=== PATIENT | female | born 1995 | race Caucasian/White ===

== ENCOUNTER 2017-02-15 12:07 | Emergency (ER) | payer SELFPAY ==
[~2017-02-15] VITALS: Ht 160 cm; Wt 77.1 kg
--- NOTE | 2017-02-15 12:30 | ED Fall/Injury ---
General Chief Complaint: Chest Wall/Rib Pain Stated Complaint: FALL/RIGHT RIB PAIN Nursing Triage Note: PT CO OF R RIB PAIN, STATES FELL LAST WEEK ON R SIDE AND CO OF R RIB PAIN SINCE WEDNESDAY Source: patient, RN notes reviewed Exam Limitations: no limitations History of Present Illness Time seen by provider: 12:30 Occurred: last week Allergies and Home Medications Allergies Coded Allergies: No Known Drug Allergies (Unverified , 02/15/17) Home Medications No Active Prescriptions or Reported Meds Past Aqlaqla-Cggldz-Afcpyb Hx Patient Social History Alcohol Use: Denies Use Recreational Drug Use: Yes (HX) Smoking Status: Current Someday Smoker Type Used: Cigarettes Recent Foreign Travel: No Contact w/Someone Who Travel: No Recent Infectious Disease Expo: No Recent Hopitalizations: No Reproductive System : No Physical Exam Vital Signs Vital Sign - Last 12Hours 02/15/17 12:24 Temp 97.2 Pulse 94 Resp 18 B/P (MAP) 92/69 Pulse Ox 97 Capillary Refill : Less Than 3 Seconds Progress/Results/Core Measures Results/Orders Lab Results Laboratory Tests Test 02/15/17 12:33 Range/Units Urine Color YELLOW Urine Clarity CLEAR Urine pH 6 5-9 Urine Specific [place] 1.015 L 1.016-1.022 Urine Protein 1+ H NEGATIVE Urine Glucose (UA) NEGATIVE NEGATIVE Urine Ketones NEGATIVE NEGATIVE Urine Nitrite POSITIVE H NEGATIVE Urine Bilirubin NEGATIVE NEGATIVE Urine Urobilinogen NORMAL NORMAL MG/DL Urine Leukocyte Esterase 3+ H NEGATIVE Urine RBC (Auto) 4+ H NEGATIVE Urine RBC 0-2 /HPF Urine WBC 25-50 H /HPF Urine Squamous Epithelial Cells >50 H /HPF Urine Crystals NONE /LPF Urine Bacteria LARGE H /HPF Urine Casts NONE /LPF Urine Mucus NEGATIVE /LPF Urine Culture Indicated YES My Orders Orders - ALICIA WALKER DO Ribs/Unilateral With Chest (02/15/17 12:32) Ua Culture If Indicated (02/15/17 12:32) Urine Culture (02/15/17 12:33) Vital Signs/I&O Vital Sign - Last 12Hours 02/15/17 12:24 Temp 97.2 Pulse 94 Resp 18 B/P (MAP) 92/69 Pulse Ox 97 Blood Pressure Mean: 77 Departure Impression Impression: Primary Impression: Contusion of rib on right side Additional Impression: UTI (urinary tract infection) Disposition: 01 HOME, SELF-CARE Condition: Stable Departure-Patient Inst. Decision time for Depature: 13:47 Referrals: ISHAAN KERR MD Patient Instructions: Bruised Rib (DC), Urinary Tract Infection, Adult (DC) Scripts Cefdinir (Cefdinir) 300 Mg Capsule 300 MG PO BID for UTI, #20 CAP 0 Refills Prov: ALICIA WALKER DO 02/15/17 Naproxen Sodium (Anaprox Ds) 550 Mg Tablet 550 MG PO Q12H Y for PAIN, #20 TAB 0 Refills Prov: ALICIA WALKER DO 02/15/17 ALICIA WALKER DO February 15, 2017 12:30
[2017-02-15 12:41] LABS: BILIRUBIN,URINE NEGATIVE (NEGATIVE); KETONES,URINE NEGATIVE (NEGATIVE); LEUKOCYTE ESTERASE ,URINE 3+ (NEGATIVE); NITRITE,URINE POSITIVE (NEGATIVE); PH,URINE 6 (5-9); PROTEIN,URINE 1+ (NEGATIVE); UROBILINOGEN,URINE NORMAL (NORMAL)
[2017-02-15 13:12] LABS: SQUAMOUS EPITHELIAL CELL,UR >50 /HPF; WBC,URINE 25-50 /HPF
--- NOTE | 2017-02-15 13:25 | Diagnostic Imaging Report ---
INDICATION: Right-sided chest wall pain after fall. COMPARISON: None available. TECHNIQUE: PA chest with three views of the right ribs. FINDINGS: No pneumothorax or pleural effusion. No evidence of pulmonic laceration. Normal cardiomediastinal silhouette. There is no acute or healing rib fracture on the right side. IMPRESSION: 1. No pneumothorax. 2. No acute or healing rib fracture on the right. Dictated by: Dictated on workstation # [id number]
[2017-02-15] MEDS ORDERED: CEFD300C3 PO (13:50)
[2017-02-15] MEDS ORDERED: NAPR550T PO (13:50)
[2017-02-15 17:17] VITALS: BP 109/78
== END 2017-02-15 13:57 | disposition home or self-care (01) ==
LOC: ER 12:12
DX: S20.211A Contusion of right front wall of thorax, initial encounter (principal); N39.0 Urinary tract infection, site not specified; F17.210 Nicotine dependence, cigarettes, uncomplicated; W19.XXXA Unspecified fall, initial encounter; Y99.8 Other external cause status
CPT/HCPCS: 71101; 81000; 84703; 87077; 87088; 87186; 99283

== ENCOUNTER 2019-09-07 12:39 | Emergency (ER) | payer SELFPAY ==
[~2019-09-07] VITALS: Ht 160 cm; Wt 83.4 kg
[~2019-09-07 12:39] MED LIST: CEFD300C3 PO; NAPR-1070 PO
[2019-09-07] MEDS ORDERED: LIDOCAINE/EPI 2% 1:100,00 (XYLOCAINE) 20 ML VIAL ONE (12:58)
[2019-09-07] MEDS ORDERED: AUGMENTIN 875 MG TAB (AMOXICILLIN/CLAVULANATE) PO SCH (13:00)
[2019-09-07] MEDS ORDERED: IBUPROFEN 800 MG (MOTRIN) TAB PO ONE (13:00)
[2019-09-07] MEDS ORDERED: ACETAMINOPHEN 325 MG TABLET PO ONE (13:00)
--- NOTE | 2019-09-07 13:05 | ED EENT ---
History of Present Illness General Chief Complaint: Dental Problems/Pain Stated Complaint: FACIAL SWELLING History of Present Illness Date Seen by Provider: Sep 07, 2019 Time Seen by Provider: 12:40 Initial Comments The patient is a 24-year-old female who is otherwise healthy. She presents with concern for acute onset of mild left-sided facial swelling in association with a necrotic left maxillary premolar. Tooth is not hurting right now but there is swelling to the face superior to it. No associated fevers, nausea or vomiting, trismus, trouble with secretions, pain or swelling to the floor of the mouth or elevation of the tongue, change in voice, trouble swallowing, shortness of breath. Symptoms had onset over the last 1 day. Patient took a dose of clindamycin this morning prior to arrival. Allergies and Home Medications Allergies Coded Allergies: No Known Drug Allergies (Unverified , 02/15/17) Home Medications Amoxicillin/Potassium Clav 1 Each Tablet, 1 TAB PO BID Prescribed by: NINA HUITRON on 09/07/19 1309 Cefdinir 300 Mg Capsule, 300 MG PO BID Prescribed by: ALICIA WALKER on 02/15/17 1350 Ibuprofen 800 Mg Tablet, 800 MG PO Q8H PRN for PAIN Prescribed by: NINA HUITRON on 09/07/19 1309 Naproxen Sodium 550 Mg Tablet, 550 MG PO Q12H PRN for PAIN Prescribed by: ALICIA WALKER on 02/15/17 1350 Tramadol HCl 50 Mg Tablet, 50 MG PO Q6H Prescribed by: NINA HUITRON on 09/07/19 1309 Patient Home Medication List Home Medication List Reviewed: Yes Review of Systems Review of Systems Constitutional: see HPI All Other Systems Reviewed Negative Unless Noted: Yes (Negative excepted noted.) Past Roidyto-Xjoptr-Vszfcc Hx Past Med/Social Hx: Reviewed Nursing Past Med/Soc Hx Patient Social History Type Used: Cigarettes Recent Foreign Travel: No Recent Hopitalizations: No Family Medical History Reviewed Nursing Family Hx Physical Exam Height, Weight, BMI Height: 5'3.00" Weight: 170lbs. oz. 77.973209gz; BMI Method:Stated General Appearance: no apparent distress This is a 24-year-old female appearing nontoxic and in no acute distress. Head is normocephalic and atraumatic. Neck is supple and nontender. Oropharynx is moist. There is mild tenderness and fluctuance at the gingival margin in association with a left maxillary premolar tooth which appears necrotic. There is overlying mild left maxillary facial swelling. No trismus. No other acute intraoral abnormalities and in particular no posterior oropharyngeal erythema, tonsillar exudates or swelling or uvular deviation. Patient is tolerating secretions very well and speaks in a normal tone of voice. Lungs clear to auscultation in all stations. There is a normal S1 and S2 without rubs or gallops and capillary refill is appropriate, less than 2 seconds globally. Abdomen is soft, nontender and nondistended. Skin is warm and dry without cyanosis, clubbing or edema. Psychiatrically, the patient demonstrates radha ropriate mood and affect and is alert. Procedures/Interventions I&D : Site: Left maxilla Blade Size: 12 Progress Fluctuant area to gingiva overlying necrotic left maxillary premolar numbed with lidocaine, then a 0.5cm incision made. Small amount of purulent material expressed, along with minimal blood. Patient tolerated the procedure well. Progress/Results/Core Measures Results/Orders My Orders Orders - NINA HUITRON MD Ibuprofen Tablet (Motrin Tablet) (09/07/19 13:00) Acetaminophen Tablet/Caplet (Tylenol T (09/07/19 13:00) Amoxicillin/Clavulanate Tablet (Augmenti (09/07/19 13:00) Lidocaine/Epi 1% 1:100,000 (Xylocaine /E (09/07/19 13:00) Lidocaine/Epi 2% 1:100,000 (Xylocaine/Ep (09/07/19 12:58) Medications Given in ED Current Medications Medications Dose Ordered Sig/Arlen Route Start Time Stop Time Status Last Admin Dose Admin Acetaminophen 975 mg ONCE ONCE PO 09/07/19 13:00 09/07/19 13:01 DC 09/07/19 13:20 975 MG Ibuprofen 800 mg ONCE ONCE PO 09/07/19 13:00 09/07/19 13:01 DC 09/07/19 13:20 800 MG Progress Progress Note : Time: 13:05 Progress Note 24-year-old female who presents with mild periapical/dental abscess involving the buccal membrane above a necrotic left maxillary premolar. Plan will be for antibiotics, pain medications and I&D procedure followed by discharge on Augmentin and with medication for discomfort and to follow up very closely in the next 1-2 days with a dentist. Patient understands and agrees with this plan of care. Update 1340: I&D procedure completed as above and the patient tolerated the procedure very well. We'll discharge with antibiotic and medications for discomfort as noted. The patient is to follow up very closely with her dentist immediately after the weekend and understands that if symptoms worsen or if other new symptoms of concern develop that she needs to return immediately to the emergency department for reevaluation. All questions are answered. We'll proceed with discharge home at this time. Departure Impression Primary Impression: Periapical abscess Disposition: HOME, SELF-CARE Condition: Improved Departure-Patient Inst. Patient Instructions: Tooth Abscess (DC) Add. Discharge Instructions: You were seen for a dental abscess which has been treated with an incision and drainage procedure. It is very important that you follow up very closely in the next 1-2 days with a dentist. Take the antibiotics until the prescription is gone. Use the pain medication as needed for discomfort. Return right away for worsening symptoms or other new concerns. Scripts Tramadol HCl (Tramadol HCl) 50 Mg Tablet 50 MG PO Q6H for Breakthrough Pain, #12 TAB Prov: NINA HUITRON MD 09/07/19 Ibuprofen (Ibuprofen) 800 Mg Tablet 800 MG PO Q8H PRN for PAIN, #30 TAB 0 Refills Prov: NINA HUITRON MD 09/07/19 Amoxicillin/Potassium Clav (Augmentin 875-125 Tablet) 1 Each Tablet 1 TAB PO BID for 10 Days, #20 TAB 0 Refills Prov: NINA HUITRON MD 09/07/19 NINA HUITRON MD Sep 07, 2019 13:04 POS
[2019-09-07] MEDS ORDERED: IBUP-1780 PO (13:09)
[2019-09-07] MEDS ORDERED: TRAM50TA2 PO (13:09)
[2019-09-07] MEDS ORDERED: AMOX-358 PO (13:09)
[2019-09-07] MEDS: LIDOCAINE/EPI 1%-1:100,000 (XYLOCAINE) 20ML INJ ONE (13:40)
[2019-09-07 13:50] VITALS: BP 116/57
== END 2019-09-07 13:50 | disposition home or self-care (01) ==
LOC: EDUNIT# 12:39 → ER FS 12:40
DX: K04.7 Periapical abscess without sinus (principal)
CPT/HCPCS: 41800

== ENCOUNTER 2019-09-09 11:05 | Emergency (ER) | payer SELFPAY ==
[~2019-09-09] VITALS: Ht 160 cm; Wt 82.9 kg
[~2019-09-09 11:05] MED LIST changes: +AMOX-358 PO; +IBUP-1780 PO; +TRAM50TA2 PO
[2019-09-09] MEDS ORDERED: KETOROLAC 30 MG/ML VIAL IVP STA (11:14)
[2019-09-09] MEDS ORDERED: cefTRIAXone FOR IV USE 2,000 MG in WATER (STERILE) FOR INJECTION 20 ML IV ONE (11:15)
--- NOTE | 2019-09-09 11:25 | ED EENT ---
History of Present Illness General Chief Complaint: Dental Problems/Pain Stated Complaint: TOOTHACHE History of Present Illness Date Seen by Provider: Sep 09, 2019 Time Seen by Provider: 11:20 Initial Comments 24-year-old female presents with some mild left-sided facial swelling. Patient was seen in our ER 2 days ago and diagnosed with a periapical abscess and start ed on antibiotics. Patient went to the [facility] yesterday because she felt a little bit worse with a changed her to Augmentin from amoxicillin. Patient however has not filled the Augmentin. She comes in today because she has some mild worsening facial swelling. She denies any difficulty swallowing, vision changes or other systemic complaints. Allergies and Home Medications Allergies Coded Allergies: No Known Drug Allergies (Unverified , 02/15/17) Home Medications Amoxicillin/Potassium Clav 1 Each Tablet, 1 TAB PO BID Prescribed by: NINA HUITRON on 09/07/19 1309 Cefdinir 300 Mg Capsule, 300 MG PO BID Prescribed by: ALICIA WALKER on 02/15/17 1350 Ibuprofen 800 Mg Tablet, 800 MG PO Q8H PRN for PAIN Prescribed by: NINA HUITRON on 09/07/19 1309 Naproxen Sodium 550 Mg Tablet, 550 MG PO Q12H PRN for PAIN Prescribed by: ALICIA WALKER on 02/15/17 1350 Tramadol HCl 50 Mg Tablet, 50 MG PO Q6H Prescribed by: NINA HUITRON on 09/07/19 1309 Patient Home Medication List Home Medication List Reviewed: Yes Review of Systems Review of Systems Constitutional: No chills, No fever Eyes: See HPI Mouth: see HPI Throat: no symptoms reported Respiratory: no symptoms reported Cardiovascular: no symptoms reported Gastrointestinal: no symptoms reported Musculoskeletal: no symptoms reported Past Uocqgni-Cxgrmf-Euuhbh Hx Past Med/Social Hx: Reviewed Nursing Past Med/Soc Hx Patient Social History Type Used: Cigarettes 2nd Hand Smoke Exposure: No Recent Hopitalizations: No Seasonal Allergies Seasonal Allergies: No Past Medical History Surgeries: No Respiratory: No Cardiac: No Neurological: No Genitourinary: No Gastrointestinal: No Musculoskeletal: No Endocrine: No HEENT: No Cancer: No Psychosocial: No Integumentary: No Physical Exam Vital Signs Vital Signs - First Documented 09/09/19 11:08 Temp 36.5 Pulse 81 Resp 22 B/P (MAP) 109/74 (86) Pulse Ox 96 Height, Weight, BMI Height: 5'3.00" Weight: 170lbs. oz. 77.960981uw; 32.00 BMI Method:Stated General Appearance: WD/WN, no apparent distress Mouth/Throat: maxillary swelling Neck: non-tender, full range of motion Cardiovascular: normal peripheral pulses, regular rate, rhythm Respiratory: lungs clear, normal breath sounds Gastrointestinal: soft Neurologic/Psychiatric: normal mood/affect, oriented x 3 Progress/Results/Core Measures Results/Orders Lab Results Laboratory Tests Test 09/09/19 11:25 Range/Units White Blood Count 10.7 4.3-11.0 10^3/uL Red Blood Count 4.74 4.35-5.85 10^6/uL Hemoglobin 14.7 11.5-16.0 G/DL Hematocrit 44 35-52 % Mean Corpuscular Volume 93 80-99 FL Mean Corpuscular Hemoglobin 31 25-34 PG Mean Corpuscular Hemoglobin Concent 33 32-36 G/DL Red Cell Distribution Width 12.3 10.0-14.5 % Platelet Count 488 H 130-400 10^3/uL Mean Platelet Volume 9.4 7.4-10.4 FL Sodium Level 138 135-145 MMOL/L Potassium Level 4.0 3.6-5.0 MMOL/L Chloride Level 104 98-107 MMOL/L Carbon Dioxide Level 23 21-32 MMOL/L Anion Gap 11 5-14 MMOL/L Blood Urea Nitrogen 9 7-18 MG/DL Creatinine 0.53 L 0.60-1.30 MG/DL Estimat Glomerular Filtration Rate > 60 BUN/Creatinine Ratio 17 Glucose Level 91 70-105 MG/DL Calcium Level 9.1 8.5-10.1 MG/DL My Orders Orders - FERREIRA,FAUSTINO L DO Basic Metabolic Panel (09/09/19 11:14) Cbc No Diff (09/09/19 11:14) Ceftriaxone For Iv Use (Rocephin For I (09/09/19 11:15) Ed Iv/Invasive Line Start (09/09/19 11:14) Ct Maxillofacial W (09/09/19 11:14) Ketorolac Injection (Toradol Injection) (09/09/19 11:14) Iohexol Injection (Omnipaque 350 Mg/Ml 1 (09/09/19 11:45) Received Contrast (Hold Metformin- Contr (09/09/19 11:45) Ns (Ivpb) (Sodium Chloride 0.9% Ivpb Bag (09/09/19 11:45) Sodium Chloride Flush (Catheter Flush Sy (09/09/19 11:45) Medications Given in ED Current Medications Medications Dose Ordered Sig/Arlen Route Start Time Stop Time Status Last Admin Dose Admin Ceftriaxone Sodium 2000 mg/ Sterile Water 20 ml @ 240 mls/hr ONCE ONCE IV 09/09/19 11:15 09/09/19 11:19 DC 09/09/19 11:29 240 MLS/HR Iohexol 75 ml ONCE ONCE IV 09/09/19 11:45 09/09/19 11:46 DC 09/09/19 11:52 75 ML Sodium Chloride 10 ml NEEDED PRN IV 09/09/19 11:45 09/09/19 11:52 10 ML Sodium Chloride 100 ml ONCE ONCE IV 09/09/19 11:45 09/09/19 11:46 DC 09/09/19 11:52 80 ML Vital Signs/I&O 09/09/19 11:08 Temp 36.5 Pulse 81 Resp 22 B/P (MAP) 109/74 (86) Pulse Ox 96 Diagnostic Imaging Diagonstic Imaging: CT Plain Films/CT/US/NM/MRI: other (maxillofacial) Reviewed: Reviewed/Discussed Departure Impression Primary Impression: Facial cellulitis Disposition: HOME, SELF-CARE Condition: Stable Departure-Patient Inst. Referrals: NO,LOCAL PHYSICIAN (PCP/Family) Primary Care Physician Patient Instructions: Cellulitis (Skin Infection), Adult (DC) Add. Discharge Instructions: Take already prescribed antibiotics as directed Follow-up with your primary care provider on Wednesday All discharge instructions reviewed with patient and/or family. Voiced understanding. FAUSTINO FERREIRA DO Sep 09, 2019 11:25 POS
[2019-09-09 11:40] LABS: HEMOGLOBIN 14.7 G/DL (11.5-16.0); WHITE BLOOD COUNT 10.7 10^3/uL (4.3-11.0)
[2019-09-09 11:41] LABS: MEAN PLATELET VOLUME 9.4 FL (7.4-10.4); RED CELL DISTRIBUTION WIDTH 12.3 % (10.0-14.5)
[2019-09-09] MEDS ORDERED: CATHETER FLUSH 10 ML SYR IV PRN (11:45)
[2019-09-09] MEDS ORDERED: HOLD METFORMIN - RECEIVED CONTRAST 20 ML VIAL IV SCH (11:45)
[2019-09-09] MEDS ORDERED: IOHEXOL 350 MG/ML 100 ML (OMNIPAQUE 350) VIAL IV ONE (11:45)
[2019-09-09] MEDS ORDERED: NS 100 ML (IVPB) BAG IV ONE (11:45)
[2019-09-09 11:48] LABS: CALCIUM 9.1 MG/DL (8.5-10.1)
[2019-09-09 11:53] LABS: CHLORIDE 104 MMOL/L (98-107); SODIUM 138 MMOL/L (135-145)
[2019-09-09 11:54] LABS: CARBON DIOXIDE 23 MMOL/L (21-32); GLUCOSE 91 MG/DL (70-105)
[2019-09-09 11:55] LABS: BUN/CREATININE RATIO 17; CREATININE SERUM 0.53 MG/DL (0.60-1.30); GFR ESTIMATED > 60
--- NOTE | 2019-09-09 12:09 | Diagnostic Imaging Report ---
PROCEDURE: CT maxillofacial with contrast. TECHNIQUE: After intravenous administration of contrast, axial images were obtained through the face and reformatted into coronal and sagittal planes. Auto Exposure Controls were utilized during the CT exam to meet ALARA standards for radiation dose reduction. INDICATION: Tooth infection causing facial swelling for 3 days. COMPARISON: None FINDINGS: There is mild periorbital edema on the left extending anterior to the left maxillary sinus. No evidence of post septal inflammatory changes are seen. The globes and orbits are symmetric and unremarkable bilaterally. No acute facial fractures are identified. Multiple dental caries are seen. No periapical lucencies are visualized. Mild mucosal thickening is seen in the bilateral maxillary sinuses. The included intracranial contents are unremarkable. IMPRESSION: 1. Periorbital cellulitis overlying the left orbit and extending to the soft tissues overlying the left maxillary sinus. No evidence of post septal inflammatory changes. The globes are intact and symmetric bilaterally. 2. Scattered dental caries without evidence of periapical lucency. No cortical disruption is seen associated with the teeth. No focal abscess. 3. No acute facial fractures. 4. Mild mucosal thickening in the bilateral maxillary sinuses. Dictated by: Dictated on workstation # [id number]
[2019-09-09 12:31] VITALS: BP 114/63
== END 2019-09-09 12:31 | disposition home or self-care (01) ==
LOC: EDUNIT# 11:05 → ER FS 11:06
DX: L03.211 Cellulitis of face (principal)
CPT/HCPCS: 36415; 70487; 80048; 85027; 96374; 96375

== ENCOUNTER 2020-06-25 18:44 | Emergency (ER) | payer SELFPAY ==
[~2020-06-25] VITALS: Ht 160 cm; Wt 86.0 kg
[~2020-06-25 18:44] MED LIST changes: -TRAM50TA2 PO; +TRM50T PO
[2020-06-25] MEDS ORDERED: ACHD5005 PO (18:55)
[2020-06-25] MEDS ORDERED: AMOX500C2 PO (18:55)
[2020-06-25 18:57] VITALS: BP 119/75
--- NOTE | 2020-06-25 19:22 | ED General ---
General Chief Complaint: Dental Problems/Pain Stated Complaint: LT SIDE WISDOM TOOTH PAIN Nursing Triage Note: Pt complaining of left lower dental pain Nursing Sepsis Screen: No Definite Risk History of Present Illness Date Seen by Provider: Jun 25, 2020 Time Seen by Provider: 19:00 Initial Comments Patient is a 25-year-old female with history of chronic dental caries who presents with dental pain for the past several days. Patient plans of left upper premolar pain over the location of dental erosion. Mild dysarthria. Pain. No dysphonia drooling or trismus. No facial swelling or abscess. No other acute symptoms or complaints. Patient has been seen in the emergency department for dental pain but has not followed up with a dentist. Timing/Duration: 4-5 Days Severity: Moderate Allergies and Home Medications Allergies Coded Allergies: No Known Drug Allergies (Unverified , 02/15/17) Home Medications Amoxicillin 500 Mg Capsule, 500 MG PO QID Prescribed by: STEPHEN ZARATE on 06/25/20 185 Amoxicillin/Potassium Clav 1 Each Tablet, 1 TAB PO BID Prescribed by: NINA HUITRON on 09/07/19 1309 Cefdinir 300 Mg Capsule, 300 MG PO BID Prescribed by: ALICIA WALKER on 02/15/17 1350 Hydrocodone/Acetaminophen 1 Each Tablet, 1 EACH PO Q6H Prescribed by: STEPHEN ZARATE on 06/25/20 185 Ibuprofen 800 Mg Tablet, 800 MG PO Q8H PRN for PAIN Prescribed by: NINA HUITRON on 09/07/19 1309 Naproxen Sodium 550 Mg Tablet, 550 MG PO Q12H PRN for PAIN Prescribed by: ALICIA WALKER on 02/15/17 1350 Tramadol HCl 50 Mg Tablet, 50 MG PO Q6H Prescribed by: NINA HUITRON on 09/07/19 1309 Patient Home Medication List Home Medication List Reviewed: Yes Review of Systems Review of Systems Constitutional: no symptoms reported EENTM: no symptoms reported Cardiovascular: no symptoms reported Gastrointestinal: no symptoms reported Genitourinary: no symptoms reported Musculoskeletal: no symptoms reported Skin: no symptoms reported Psychiatric/Neurological: No Symptoms Reported Hematologic/Lymphatic: No Symptoms Reported Immunological/Allergic: no symptoms reported All Other Systems Reviewed Negative Unless Noted: Yes Past Fluzmpg-Gmorhn-Csvpoa Hx Past Med/Social Hx: Reviewed Nursing Past Med/Soc Hx Patient Social History Alcohol Use: Occasionally Uses Recreational Drug Use: No Smoking Status: Current Everyday Smoker Type Used: Cigarettes 2nd Hand Smoke Exposure: No Recent Foreign Travel: No Contact w/Someone Who Travel: No Recent Infectious Disease Expo: No Recent Hopitalizations: No Physical Abuse: No Sexual Abuse: No Seasonal Allergies Seasonal Allergies: No Past Medical History Surgeries: No Respiratory: No Cardiac: No Neurological: No Genitourinary: No Gastrointestinal: No Musculoskeletal: No Endocrine: No HEENT: No Cancer: No Psychosocial: No Integumentary: No Physical Exam Vital Signs Vital Signs - First Documented 06/25/20 18:47 Temp 36.5 Pulse 80 Resp 16 B/P (MAP) 119/75 (90) Pulse Ox 98 O2 Delivery Room Air Capillary Refill : Less Than 3 Seconds Height, Weight, BMI Height: 5'3.00" Weight: 170lbs. oz. 77.688584tx; 33.00 BMI Method:Stated General Appearance: Anxious, Mild Distress Eyes: Bilateral Eye Normal Inspection, Bilateral Eye PERRL, Bilateral Eye EOMI HEENT: PERRL/EOMI, Other (left upper premolar dental erosion with gingival swelling. No facial abscess) Neck: Non Tender, Supple Progress/Results/Core Measures Suspected Sepsis Recent Fever Within 48 Hours: No Infection Criteria Present: None New/Unexplained Altered Menta: No Sepsis Screen: No Definite Risk SIRS Temperature: Pulse: 80 Respiratory Rate: 16 Blood Pressure 119 /75 Mean: 90 Results/Orders Vital Signs/I&O 06/25/20 06/25/20 18:47 18:57 Temp 36.5 36.5 Pulse 80 80 Resp 16 16 B/P (MAP) 119/75 (90) 119/75 (90) Pulse Ox 98 98 O2 Delivery Room Air Room Air Capillary Refill : Less Than 3 Seconds Blood Pressure Mean: 90 Departure Communication (Admissions) Poor dental hygiene with noncompliance with dental follow-up. Impression Primary Impression: Pain due to dental caries Disposition: HOME, SELF-CARE Condition: Stable Departure-Patient Inst. Patient Instructions: Dental Pain (DC) Scripts Hydrocodone/Acetaminophen (Hydrocodone-Acetamin 5-325 mg) 1 Each Tablet 1 EACH PO Q6H, #10 TAB Prov: STEPHEN ZARATE DO 06/25/20 Amoxicillin (Amoxicillin) 500 Mg Capsule 500 MG PO QID, #40 CAP 0 Refills Prov: STEPHEN ZARATE DO 06/25/20 STEPHEN ZARATE DO Jun 25, 2020 19:22
== END 2020-06-25 19:00 | disposition home or self-care (01) ==
LOC: EDUNIT# 18:44 → ER FS 18:46
DX: K02.9 Dental caries, unspecified (principal); F41.9 Anxiety disorder, unspecified; F17.210 Nicotine dependence, cigarettes, uncomplicated
CPT/HCPCS: 99282

== ENCOUNTER 2022-03-05 19:45 | Emergency (ER) | payer SELFPAY ==
[~2022-03-05] VITALS: Ht 160 cm; Wt 67.4 kg
[~2022-03-05 19:45] MED LIST changes: +ACHD5005 PO; +AMOX500C2 PO
[2022-03-05] MEDS ORDERED: METOCLOPRAMIDE INJ 10 MG/2 ML (REGLAN) IM STA (20:00)
[2022-03-05] MEDS ORDERED: KETOROLAC 30 MG/ML VIAL IM STA (20:00)
--- NOTE | 2022-03-05 20:06 | ED Abdominal Pain ---
General Chief Complaint: Back Problems Stated Complaint: R HIP PAIN History of Present Illness Date Seen by Provider: March 05, 2022 Time Seen by Provider: 20:00 Initial Comments 26-year-old female presents with right flank pain. She reports that started around 430 this afternoon. She has some mild nausea with it. The pain radiates mildly into her groin. She does not have any new injuries. Nothing seems to make the pain worse or better just can it comes and goes. She denies any urinary symptoms, no fever, chills. Allergies and Home Medications Allergies Coded Allergies: latex (Unverified Adverse Reaction, Mild, rash, 03/05/22) Patient Home Medication List Home Medication List Reviewed: Yes Hydrocodone/Acetaminophen (Hydrocodone-Acetamin 5-325 mg) 1 Each Tablet, 1 EACH PO Q6H Prescribed by: STEPHEN ZARATE on 06/25/201854 Ibuprofen (Ibuprofen) 800 Mg Tablet, 800 MG PO Q8H PRN for PAIN Prescribed by: NINA HUITRON on 09/07/19 130 Naproxen Sodium (Anaprox Ds) 550 Mg Tablet, 550 MG PO Q12H PRN for PAIN Prescribed by: ALICIA WALKER on 02/15/17 1350 Tramadol HCl (Tramadol HCl) 50 Mg Tablet, 50 MG PO Q6H Prescribed by: NINA HUITRON on 09/07/19 130 Discontinued Medications Amoxicillin (Amoxicillin) 500 Mg Capsule, 500 MG PO QID Discontinued Reason: Referral/FU Appt-Addtl Prescribed by: STEPHEN ZARATE on 06/25/201854 Last Action: Discontinued Amoxicillin/Potassium Clav (Augmentin 875-125 Tablet) 1 Each Tablet, 1 TAB PO BID Discontinued Reason: Referral/FU Appt-Addtl Prescribed by: NINA HUITRON on 09/07/19 130 Last Action: Discontinued Cefdinir (Cefdinir) 300 Mg Capsule, 300 MG PO BID Discontinued Reason: Referral/FU Appt-Addtl Prescribed by: ALICIA WALKER on 02/15/17 1350 Last Action: Discontinued Review of Systems Review of Systems Constitutional: No chills, No fever Respiratory: No Symptoms Reported Cardiovascular: No Symptoms Reported Gastrointestinal: See HPI Genitourinary: See HPI, Flank Pain Musculoskeletal: back pain Skin: no symptoms reported Psychiatric/Neurological: No Symptoms Reported Endocrine: No Symptoms Reported Hematologic/Lymphatic: No Symptoms Reported Past [id number] Hx Seasonal Allergies Seasonal Allergies: No Past Medical History Surgeries: No Respiratory: No Cardiac: No Neurological: No Genitourinary: No Gastrointestinal: No Musculoskeletal: No Endocrine: No HEENT: No Cancer: No Psychosocial: No Integumentary: No Physical Exam Vital Signs Capillary Refill : Height/Weight/BMI Height: 5'3.00" Weight: 170lbs. oz. [id number]; 33.00 BMI Method:Stated General Appearance: WD/WN Neck: full range of motion Respiratory: lungs clear, normal breath sounds, no respiratory distress Cardiovascular: normal peripheral pulses Gastrointestinal: non tender, soft Extremities: normal range of motion, non-tender, normal inspection Back: CVA tenderness (R) Neurologic/Psychiatric: alert, normal mood/affect, oriented x 3 Skin: normal color, warm/dry Progress/Results/Core Measures Results/Orders Lab Results Laboratory Tests Test 03/05/22 20:00 Range/Units Urine Color YELLOW Urine Clarity SL CLOUDY Urine pH 6.0 5-9 Urine Specific Bryant >=1.030 1.016-1.022 Urine Protein NEGATIVE NEGATIVE Urine Glucose (UA) NEGATIVE NEGATIVE Urine Ketones NEGATIVE NEGATIVE Urine Nitrite NEGATIVE NEGATIVE Urine Bilirubin NEGATIVE NEGATIVE Urine Urobilinogen 0.2 < = 1.0 MG/DL Urine Leukocyte Esterase NEGATIVE NEGATIVE Urine RBC (Auto) NEGATIVE NEGATIVE Urine RBC NONE /HPF Urine WBC 2-5 /HPF Urine Squamous Epithelial Cells 25-50 H /HPF Urine Crystals NONE /LPF Urine Bacteria FEW H /HPF Urine Casts NONE /LPF Urine Mucus SMALL H /LPF Urine Culture Indicated NO My Orders Orders - FAUSTINO FERREIRA DO Urine Bedside (03/05/22 20:00) Ct Abdomen/Pelvis Wo (03/05/22 20:00) Ua Culture If Indicated (03/05/22 20:00) Ketorolac Injection (Toradol Injection) (03/05/22 20:00) Metoclopramide Injection (Reglan Injecti (03/05/22 20:00) Progress Progress Note : Progress Note Patient with negative CT abdomen pelvis, negative urine. patient with no nspecific flank pain and nausea. Patient stable and discharged home Diagnostic Imaging Diagonstic Imaging: CT Plain Films/CT/US/NM/MRI: abdomen, pelvis Comments Date of Exam:03/05/22 CT ABDOMEN/PELVIS WO EXAMINATION: CT abdomen and pelvis without contrast. TECHNIQUE: Multiple contiguous axial images were obtained through the abdomen and pelvis without the use of intravenous contrast. All CT scans use one or more of the following dose optimizing techniques: automated exposure control, MA and/or KvP adjustment based on patient size and exam type or iterative reconstruction. HISTORY: Flank pain. COMPARISON: None available. FINDINGS: Lung bases: The lung bases are clear. Solid organs: The liver is normal. The gallbladder is normal. There is no biliary ductal dilation. Pancreas is normal. Spleen is normal. Adrenal glands are normal. The kidneys are normal without visualized calculus or hydronephrosis. Bowel: The stomach and small bowel are normal without obstruction. The colon and appendix are normal. Peritoneum: There is no intraperitoneal free fluid or free air. No suspicious lymphadenopathy. Vasculature: Normal without aneurysm. Musculoskeletal: No suspicious osseous lesion or compression fracture. Pelvis: The uterus and adnexa are normal. The urinary bladder is normal. IMPRESSION: 1. No visualized renal calculus or hydronephrosis. 2. No acute abnormality in the abdomen or pelvis. Reviewed: Reviewed by Me, Reviewed/Discussed Departure Impression Primary Impression: Acute right flank pain Disposition: 01 HOME, SELF-CARE Condition: Stable Departure-Patient Inst. Referrals: NO,LOCAL PHYSICIAN (PCP/Family) Primary Care Physician Patient Instructions: Flank Pain ED Add. Discharge Instructions: Tylenol or ibuprofen as needed for pain 4% topical lidocaine to her right flank as needed for pain All discharge instructions reviewed with patient and/or family. Voiced understanding. FAUSTINO FERREIRA DO March 05, 2022 20:06
[2022-03-05 20:08] LABS: BILIRUBIN,URINE NEGATIVE (NEGATIVE); COLOR,URINE YELLOW; GLUCOSE, URINE (UA) NEGATIVE (NEGATIVE); KETONES,URINE NEGATIVE (NEGATIVE); LEUKOCYTE ESTERASE ,URINE NEGATIVE (NEGATIVE); NITRITE,URINE NEGATIVE (NEGATIVE); PROTEIN,URINE NEGATIVE (NEGATIVE)
[2022-03-05 20:13] LABS: BACTERIA,URINE FEW /HPF; CLARITY,URINE SL CLOUDY; SQUAMOUS EPITHELIAL CELL,UR 25-50 /HPF
--- NOTE | 2022-03-05 20:41 | Diagnostic Imaging Report ---
EXAMINATION: CT abdomen and pelvis without contrast. TECHNIQUE: Multiple contiguous axial images were obtained through the abdomen and pelvis without the use of intravenous contrast. All CT scans use one or more of the following dose optimizing techniques: automated exposure control, MA and/or KvP adjustment based on patient size and exam type or iterative reconstruction. HISTORY: Flank pain. COMPARISON: None available. FINDINGS: Lung bases: The lung bases are clear. Solid organs: The liver is normal. The gallbladder is normal. There is no biliary ductal dilation. Pancreas is normal. Spleen is normal. Adrenal glands are normal. The kidneys are normal without visualized calculus or hydronephrosis. Bowel: The stomach and small bowel are normal without obstruction. The colon and appendix are normal. Peritoneum: There is no intraperitoneal free fluid or free air. No suspicious lymphadenopathy. Vasculature: Normal without aneurysm. Musculoskeletal: No suspicious osseous lesion or compression fracture. Pelvis: The uterus and adnexa are normal. The urinary bladder is normal. IMPRESSION: 1. No visualized renal calculus or hydronephrosis. 2. No acute abnormality in the abdomen or pelvis. Dictated by: Dictated on workstation # [id number]
[2022-03-05 20:57] VITALS: BP 110/82
== END 2022-03-05 20:57 | disposition home or self-care (01) ==
LOC: EDUNIT# 19:45 → ER FS 19:46
DX: R10.9 Unspecified abdominal pain (principal)
CPT/HCPCS: 74176; 81000; 84703